=== PATIENT | female | born 1975 | race Two or more races ===

== ENCOUNTER 2018-10-17 12:21 | Inpatient (IN) | payer MEDICAID | END 2018-10-21 01:54 | disposition short-term general hospital (02) | LOC: ICU WEST 10-20 21:51 → ER 12:21 → TELE-WESTW 21:00 → TELE 14:51 → TELE-WESTW 21:04 | DX: K43.6 Other and unspecified ventral hernia with obstruction, without gangrene (principal); E11.65 Type 2 diabetes mellitus with hyperglycemia; E44.1 Mild protein-calorie malnutrition; Z90.49 Acquired absence of other specified parts of digestive tract; E66.9 Obesity, unspecified; Z87.19 Personal history of other diseases of the digestive system ==